=== PATIENT | male | born 1945 | race African-American/Black ===

== ENCOUNTER 2018-02-03 16:09 | Emergency (ER) | payer OTHER ==
[~2018-02-03] VITALS: Ht 175.3 cm; Wt 63.5 kg
[2018-02-03] MEDS ORDERED: PRAVASTATIN SOD10 MG (16:47)
[2018-02-03] MEDS ORDERED: ASA-EC81 MG (16:47)
[2018-02-03] MEDS ORDERED: METFORMIN HCL500 MG (16:47)
[2018-02-03] MEDS ORDERED: CARDIZEM120 MG (16:47)
== END 2018-02-03 22:18 | disposition home or self-care (01) ==
LOC: ER 16:09 → EDBD 16:09 → ER 16:22
DX: R55 Syncope and collapse (principal); G45.8 Other transient cerebral ischemic attacks and related syndromes; T38.3X5A Adverse effect of insulin and oral hypoglycemic [antidiabetic] drugs, initial encounter; Y92.89 Other specified places as the place of occurrence of the external cause